=== PATIENT | male | born 1955 | race Caucasian/White ===

== ENCOUNTER 2023-12-14 14:56 | Emergency (ER) | payer OTHER ==
[~2023-12-14] VITALS: Ht 185.4 cm; Wt 63.5 kg
[2023-12-14 15:39] VITALS: BP_SYST 186; PULSE 80; RESP 20; TEMP 98.3; O2SAT 98
[2023-12-14] MEDS: KETOROLAC TROMETHAMINE 30 MG VIAL IVP ONE (17:45)
[2023-12-14] MEDS: NACL 0.9% 1,000 ML IV ONE (17:45)
[2023-12-14 17:59] LABS: PROTHROMBIN TIME 10.3 SECS (9.5-12.5)
[2023-12-14 18:00] LABS: ALANINE AMINOTRANSFERASE 18 U/L (12-78); ALBUMIN 3.8 g/dL (3.4-4.8); ANION GAP 6 (5-15); ASPARTATE AMINOTRANSFERASE 25 U/L (10-37); CARBON DIOXIDE 31 mmol/L (23-29); CHLORIDE 106 mmol/L (98-107); GFR AFRICAN AMERICAN 86 mL/min (>90); GLUCOSE 98 mg/dL (74-106); POTASSIUM 4.2 mmol/L (3.5-5.1); SODIUM SERUM 143 mmol/L (136-145); TOTAL BILIRUBIN 0.3 mg/dL (0.0-1.0); TOTAL PROTEIN, SERUM 7.1 g/dL (6.4-8.3); UREA NITROGEN, BLOOD 12 mg/dL (8-21)
[2023-12-14 18:01] LABS: GFR NON AFRICAN-AMERICAN 71 mL/min (>90)
[2023-12-14 18:08] LABS: BILIRUBIN,DIRECT 0.1 mg/dL (0.0-0.3)
[2023-12-14 18:17] LABS: INFLUENZA TYPE A Negative (NEGATIVE); INFLUENZA TYPE B NEGATIVE (NEGATIVE)
[2023-12-14 18:27] LABS: BASOPHILS # (AUTO) 0.1 K/uL (0.0-0.2); BASOPHILS % (AUTO) 0.8 % (0.0-2.0); EOSINOPHILS # (AUTO) 0.2 K/uL (0.0-0.4); EOSINOPHILS % (AUTO) 2.7 % (0.0-4.0); HEMATOCRIT 34.5 % (36-54); LYMPHOCYTES # (AUTO) 2.4 K/uL (1.0-5.5); LYMPHOCYTES % (AUTO) 28.6 % (20.5-51.5); MEAN CORPUSCULAR HEMOGLOBIN 33 pg (27-31); MEAN CORPUSCULAR HGB CONC 35 % (32-36); MEAN CORPUSCULAR VOLUME 94 fL (79.0-98.0); MONOCYTES # (AUTO) 0.4 K/uL (0.0-1.0); MONOCYTES % (AUTO) 5.2 % (1.7-9.3); NEUTROPHILS # (AUTO) 5.3 K/uL (1.8-7.7); NEUTROPHILS % (AUTO) 62.7 % (40.0-70.0); PLATELET COUNT (AUTO) 209 K/uL (130-430); RED BLOOD CELL COUNT(AUTO) 3.67 MIL/uL (4.2-6.2); RED CELL DISTRIBUTION WIDTH 13.5 % (9.0-15.0); WHITE BLOOD COUNT (AUTO) 8.4 K/uL (4.8-10.8)
[2023-12-14 18:38] LABS: BILIRUBIN,URINE NEGATIVE (NEGATIVE); BLOOD, URINE 1+ (NEGATIVE); CLARITY/URINE CLEAR (CLEAR); GLUCOSE,URINE NEGATIVE (NEGATIVE); KETONES,URINE NEGATIVE (NEGATIVE); LEUKOCYTE ESTERASE ,URINE NEGATIVE (NEGATIVE); NITRITE, URINE NEGATIVE (NEGATIVE); PROTEIN URINE NEGATIVE (NEGATIVE); UROBILINOGEN,URINE 0.2 (0.2-1.0)
[2023-12-14 19:08] LABS: COLOR,URINE STRAW (YELLOW)
[2023-12-14 19:14] LABS: BACTERIA,URINE RARE /HPF (None Seen); MUCUS,URINE None Seen /LPF (None Seen); WBC,URINE 0-3 /HPF (0-3)
[2023-12-14] MEDS ORDERED: DICL50TA9 PO (20:01)
[2023-12-14] MEDS ORDERED: LIDO1ADH22 TP (20:01)
[2023-12-14 20:12] VITALS: BP_SYST 151; PULSE 78; RESP 17; TEMP 98; O2SAT 97
== END 2023-12-14 20:12 | disposition home or self-care (01) ==
LOC: SED 14:56
DX: M54.50 Low back pain, unspecified (principal); G20.A1 Parkinson's disease without dyskinesia, without mention of fluctuations; R53.1 Weakness; Z20.822 Contact with and (suspected) exposure to COVID-19
CPT/HCPCS: 99285; 96374; 71045; 96361; 87426; 80076; 80048; 81001; 83880; 85025; 85610; 85730; 87040; 87086; 84484; 36415; 93005; 83605; 87804 ×2; J1885; J7030; 81000; 81015